=== PATIENT | female | born 1940 | race Caucasian/White ===

== ENCOUNTER 2023-03-02 11:55 | Inpatient (IN) | payer MEDICARE ==
[2023-03-02] MEDS ORDERED: Sodium Chloride 0.9% 1,000 ML IV ONE ×2 (12:13→13:08)
[2023-03-02] MEDS ORDERED: Sodium Chloride 0.9% 10 ML Syringe FLUSH PRN (12:13)
[2023-03-02 12:34] LABS: BASOPHILS ABSOLUTE AUTO 0.02 K/mm3 (0.01-0.08); BASOPHILS PERCENT AUTO 0.1 % (0.1-1.2); EOSINOPHILS PERCENT AUTO 0 (0.7-5.8); HEMATOCRIT 35.1 % (34.1-44.9); HEMOGLOBIN 11.3 gm/dl (11.2-15.7); IMMATURE GRAN ABSOLUTE AUTO 0.15 K/mm3 (0.00-0.10); IMMATURE GRAN PERCENT AUTO 0.6 % (<=1.0); LYMPHOCYTES ABSOLUTE AUTO 1.66 K/mm3 (1.18-3.74); LYMPHOCYTES PERCENT AUTO 6.8 % (19.3-51.7); MEAN CORPUSCULAR HEMOGLOBIN 29.7 pg (25.6-32.2); MEAN CORPUSCULAR HGB CONC 32.2 g/dl (32.2-35.5); MEAN CORPUSCULAR VOLUME 92.1 fl (79.4-94.8); MEAN PLATELET VOLUME 11.3 fl (9.4-12.3); MONOCYTES ABSOLUTE AUTO 2.59 K/mm3 (0.24-0.36); MONOCYTES PERCENT AUTO 10.5 % (4.7-12.5); NEUTROPHILS ABSOLUTE AUTO 20.15 K/mm3 (1.56-6.13); PLATELET COUNT,PLT 200 K/mm3 (182-369); RED BLOOD CELL COUNT 3.81 M/mm3 (3.98-5.22); WHITE BLOOD CELL COUNT,WBC 24.57 K/mm3 (3.98-10.04)
[2023-03-02 12:50] LABS: INR 1.03
[2023-03-02] MEDS ORDERED: cefTRIAXone 2 GM in Sodium Chloride 0.9% 100 ML IV ONE (13:08)
[2023-03-02 13:11] LABS: LACTIC ACID 1.2 mmol/L (0.4-2.0)
[2023-03-02 13:12] LABS: A/G RATIO 0.8 (1-2); ALBUMIN 3.2 g/dl (3.4-5.0); ANION GAP 18.6 (5-15); BILIRUBIN TOTAL 0.4 mg/dL (0.2-1.0); CALCIUM 9.6 mg/dL (8.5-10.1); CREATININE 4.1 mg/dL (0.55-1.02); EST CRCL DRUG DOSING (CG) 7.6 mL/min; PROTEIN TOTAL,TP 7.4 g/dl (6.4-8.2)
[2023-03-02 13:13] LABS: POTASSIUM,K 6.6 mEq/L (3.5-5.1)
[2023-03-02 13:17] LABS: SLIDE REVIEW ABNORMAL SMEAR
[2023-03-02 13:26] LABS: C-REACTIVE PROTEIN 32.3 mg/dL (<1.0)
[2023-03-02] MEDS ORDERED: Insulin Regular, Human 100 Units/ML 3 ML Vial IV ONE (13:58)
[2023-03-02] MEDS ORDERED: 50% Dextrose in Water 50 ML Syringe IVPUSH ONE (13:59)
[2023-03-02 14:12] LABS: APPEARANCE,URINE CLEAR (Clear); BILIRUBIN,URINE 1+ (Negative); COLOR,URINE YELLOW (Yellow); GLUCOSE,URINE NEGATIVE (Negative); KETONES,URINE TRACE (Negative); LEUKOCYTE ESTERASE,URINE NEGATIVE (Negative); NITRITE,URINE NEGATIVE (Negative); OCCULT BLOOD,URINE NEGATIVE (Negative); PROTEIN,URINE NEGATIVE (Negative); UROBILINOGEN,URINE 0.2 (0.2-1.0)
[2023-03-02] MEDS: Sodium Chloride 0.9% 1,000 ML IV SCH (15:05)
[2023-03-02] MEDS ORDERED: Acetaminophen 325 MG Tab PO PRN (15:51)
[2023-03-02] MEDS ORDERED: Temazepam 7.5 MG Cap PO PRN (15:51)
[2023-03-02] MEDS ORDERED: Sodium Polystyrene Sulfonate 15 GM/60 ML Susp 60 ML Bot PO ONE (15:55)
[2023-03-02] MEDS ORDERED: Norepinephrine 4 MG in Dextrose 5% in Water 246 ML IV SCH ×2 (17:00)
[2023-03-02] MEDS ORDERED: Sodium Polystyrene Sulfonate 15 GM/60 ML Susp 60 ML Bot ONE (18:47)
[2023-03-02] MEDS: Heparin Sodium 5,000 Units/ML Vial SUBCUT SCH (19:24)
[2023-03-02 20:40] LABS: BACTERIA,URINE FEW /hpf (FEW); MUCUS,URINE FEW /hpf (FEW); RBC,URINE 0-5 /hpf (0-5); WBC,URINE 0-5 /hpf (0-5)
[2023-03-02 20:41] LABS: HYALINE CASTS,URINE 0-5 /lpf (0-5)
[2023-03-02] MEDS: Lactated Ringers 1,000 ML IV SCH (20:45)
[2023-03-03] MEDS: ALPRAZolam 0.5 MG Tab PO SCH ×2 (01:13→20:51)
[2023-03-03] MEDS: Heparin Sodium 5,000 Units/ML Vial SUBCUT SCH ×3 (03:45→16:16)
[2023-03-03] MEDS: Lactated Ringers 1,000 ML IV SCH (04:58)
[2023-03-03 06:02] LABS: A/G RATIO 0.7 (1-2); ALBUMIN 2.4 g/dl (3.4-5.0); BILIRUBIN TOTAL 0.1 mg/dL (0.2-1.0); BUN/CREATININE RATIO 29.5 (14-18); CALCIUM 8.9 mg/dL (8.5-10.1); EST CRCL DRUG DOSING (CG) 16.4 mL/min; POTASSIUM,K 5.4 mEq/L (3.5-5.1)
[2023-03-03 06:07] LABS: BASOPHILS ABSOLUTE AUTO 0.02 K/mm3 (0.01-0.08); BASOPHILS PERCENT AUTO 0.1 % (0.1-1.2); EOSINOPHILS ABSOLUTE AUTO 0.01 K/mm3 (0.04-0.36); EOSINOPHILS PERCENT AUTO 0.1 (0.7-5.8); HEMATOCRIT 32.1 % (34.1-44.9); HEMOGLOBIN 10.1 gm/dl (11.2-15.7); IMMATURE GRAN ABSOLUTE AUTO 0.08 K/mm3 (0.00-0.10); IMMATURE GRAN PERCENT AUTO 0.4 % (<=1.0); LYMPHOCYTES ABSOLUTE AUTO 1.87 K/mm3 (1.18-3.74); LYMPHOCYTES PERCENT AUTO 9.9 % (19.3-51.7); MEAN CORPUSCULAR HEMOGLOBIN 29.2 pg (25.6-32.2); MEAN CORPUSCULAR HGB CONC 31.5 g/dl (32.2-35.5); MEAN CORPUSCULAR VOLUME 92.8 fl (79.4-94.8); MEAN PLATELET VOLUME 12.5 fl (9.4-12.3); MONOCYTES ABSOLUTE AUTO 2.62 K/mm3 (0.24-0.36); MONOCYTES PERCENT AUTO 13.9 % (4.7-12.5); NEUTROPHILS ABSOLUTE AUTO 14.24 K/mm3 (1.56-6.13); NEUTROPHILS PERCENT AUTO 75.6 % (34.0-71.1); PLATELET COUNT,PLT 176 K/mm3 (182-369); RED BLOOD CELL COUNT 3.46 M/mm3 (3.98-5.22); WHITE BLOOD CELL COUNT,WBC 18.84 K/mm3 (3.98-10.04)
[2023-03-03 06:14] LABS: ANION GAP 15.4 (5-15)
[2023-03-03 06:36] LABS: SLIDE REVIEW ABNORMAL SMEAR
[2023-03-03 06:37] LABS: CREATININE 1.9 mg/dL (0.55-1.02)
[2023-03-03] MEDS: atorvaSTATin 20 MG Tab PO SCH (08:17)
[2023-03-03] MEDS: Acetaminophen/HYDROcodone 325-10 MG Tab PO SCH (08:17)
[2023-03-03] MEDS: Spironolactone 25 MG Tab PO SCH (08:19)
[2023-03-03] MEDS: Famotidine 20 MG Tab PO SCH (08:20)
[2023-03-03] MEDS ORDERED: Losartan 100 MG Tab PO SCH (09:00)
[2023-03-03] MEDS ORDERED: Metoprolol Succinate 25 MG Tab.ER PO SCH (09:00)
[2023-03-03] MEDS ORDERED: amLODIPine 5 MG Tab PO SCH (09:00)
[2023-03-03] MEDS: Sodium Chloride 0.9% 1,000 ML IV SCH (14:21)
[2023-03-03] MEDS ORDERED: Sodium Chloride 0.9% 1,000 ML IV SCH (14:45)
[2023-03-04] MEDS: Heparin Sodium 5,000 Units/ML Vial SUBCUT SCH ×2 (00:13→08:25)
[2023-03-04 05:24] LABS: BASOPHILS ABSOLUTE AUTO 0.03 K/mm3 (0.01-0.08); BASOPHILS PERCENT AUTO 0.3 % (0.1-1.2); EOSINOPHILS PERCENT AUTO 0 (0.7-5.8); HEMATOCRIT 31.9 % (34.1-44.9); HEMOGLOBIN 10.1 gm/dl (11.2-15.7); IMMATURE GRAN ABSOLUTE AUTO 0.07 K/mm3 (0.00-0.10); IMMATURE GRAN PERCENT AUTO 0.6 % (<=1.0); LYMPHOCYTES ABSOLUTE AUTO 2.77 K/mm3 (1.18-3.74); LYMPHOCYTES PERCENT AUTO 23.8 % (19.3-51.7); MEAN CORPUSCULAR HEMOGLOBIN 29.1 pg (25.6-32.2); MEAN CORPUSCULAR HGB CONC 31.7 g/dl (32.2-35.5); MEAN CORPUSCULAR VOLUME 91.9 fl (79.4-94.8); MEAN PLATELET VOLUME 11.9 fl (9.4-12.3); MONOCYTES ABSOLUTE AUTO 1.29 K/mm3 (0.24-0.36); MONOCYTES PERCENT AUTO 11.1 % (4.7-12.5); NEUTROPHILS ABSOLUTE AUTO 7.47 K/mm3 (1.56-6.13); NEUTROPHILS PERCENT AUTO 64.2 % (34.0-71.1); PLATELET COUNT,PLT 175 K/mm3 (182-369); RED BLOOD CELL COUNT 3.47 M/mm3 (3.98-5.22); WHITE BLOOD CELL COUNT,WBC 11.63 K/mm3 (3.98-10.04)
[2023-03-04 05:58] LABS: A/G RATIO 0.6 (1-2); ALBUMIN 2.3 g/dl (3.4-5.0); ANION GAP 14.6 (5-15); BILIRUBIN TOTAL 0.2 mg/dL (0.2-1.0); EST CRCL DRUG DOSING (CG) 31.15 mL/min; POTASSIUM,K 4.6 mEq/L (3.5-5.1)
[2023-03-04] MEDS: Spironolactone 25 MG Tab PO SCH (08:24)
[2023-03-04] MEDS: Acetaminophen/HYDROcodone 325-10 MG Tab PO SCH (08:24)
[2023-03-04] MEDS: Famotidine 20 MG Tab PO SCH (08:24)
[2023-03-04] MEDS: atorvaSTATin 20 MG Tab PO SCH (08:24)
== END 2023-03-04 11:10 | disposition home or self-care (01) | DRG 315 ==
LOC: JD.ED 11:55 → JD.ICU 15:51
PROVIDERS: ADMIT Internal Medicine; ATTEND Internal Medicine
PROC: 3E033XZ Introduction of Vasopressor into Peripheral Vein, Percutaneous Approach (ICD-10-PCS; principal; 2023-03-02)
DX: I95.9 Hypotension, unspecified (principal); N17.9 Acute kidney failure, unspecified; E86.0 Dehydration; M19.90 Unspecified osteoarthritis, unspecified site; A41.9 Sepsis, unspecified organism; G89.29 Other chronic pain; Z20.822 Contact with and (suspected) exposure to COVID-19; D72.828 Other elevated white blood cell count; E87.5 Hyperkalemia; E86.1 Hypovolemia; R19.7 Diarrhea, unspecified; M54.50 Low back pain, unspecified; Z95.5 Presence of coronary angioplasty implant and graft; Z90.710 Acquired absence of both cervix and uterus; Z90.79 Acquired absence of other genital organ(s); Z90.722 Acquired absence of ovaries, bilateral; Z79.899 Other long term (current) drug therapy
CPT/HCPCS: 36415; 71045; 80053; 81001; 83605; 84132; 84484; 85025; 85610; 86140; 87040 ×2; 93005; 96361; 96365; 96375; 99285; J0696; J1815; J3490; J7030 ×3; U0002; 83630; 87045; 87046; 87899; A9270-GY; J1644; J7060; J7120